=== PATIENT | female | born 1950 | race Caucasian/White ===

== ENCOUNTER 2016-10-21 12:22 | Inpatient (IN) | payer OTHER ==
[~2016-10-21] VITALS: Ht 160 cm; Wt 81.6 kg
[2016-10-21 12:22] VITALS: BP_SYST 113
--- NOTE | 2016-10-21 12:35 | NUR ---
Patient to ER bed 1 to gown for evaluation by Elaine. Side rails up. Report given to me.
[2016-10-21] MEDS ORDERED: NACL 0.9% 1,000 ML IV ONE (12:44)
[2016-10-21] MEDS ORDERED: MECLIZINE HCL 25 MG TABLET (ANITVERT) PO ONE ×2 (12:45→13:45)
[2016-10-21] MEDS ORDERED: ONDANSETRON HCL 4 MG/2 ML VIAL IVP ONE ×2 (12:45→13:45)
--- NOTE | 2016-10-21 12:45 | NUR ---
Patient BIB co workers for sudden onset of dizziness when standing up at work.pt is feeling nauseous,denies vomiting, states she is feeling better when she is laying on her side. pt denies pain. pt denies hx of this occurance. will continue to monitor
--- NOTE | 2016-10-21 12:48 | NUR ---
Dr Alston at bedside to evaluate patient
[2016-10-21 13:05] LABS: BASOPHILS % (AUTO) 0.4 % (0.0-2.0); EOSINOPHILS # (AUTO) 0.1 K/uL (0.0-0.4); EOSINOPHILS % (AUTO) 0.8 % (0.0-4.0); HEMATOCRIT 39.3 % (36-48); HEMOGLOBIN 13.2 g/dL (12.0-16.0); LYMPHOCYTES # (AUTO) 2.8 K/uL (1.0-5.5); LYMPHOCYTES % (AUTO) 30.5 % (20.5-51.5); MEAN CORPUSCULAR HEMOGLOBIN 31 pg (27-31); MEAN CORPUSCULAR HGB CONC 34 % (32-36); MEAN CORPUSCULAR VOLUME 93 fL (79.0-98.0); MONOCYTES # (AUTO) 0.8 K/uL (0.0-1.0); MONOCYTES % (AUTO) 8.1 % (1.7-9.3); NEUTROPHILS # (AUTO) 5.6 K/uL (1.8-7.7); NEUTROPHILS % (AUTO) 60.2 % (40.0-70.0); PLATELET COUNT (AUTO) 348 K/uL (130-430); RED BLOOD CELL COUNT(AUTO) 4.22 MIL/uL (4.2-6.2); RED CELL DISTRIBUTION WIDTH 11.9 % (9.0-15.0); WHITE BLOOD COUNT (AUTO) 9.3 K/uL (4.8-10.8)
--- NOTE | 2016-10-21 13:08 | NUR ---
medicated pt per MD order
[2016-10-21 13:13] LABS: CALCIUM 8.9 mg/dL (8.4-11.0); CREATININE 0.78 mg/dL (0.55-1.30); POTASSIUM 3.1 mmol/L (3.5-5.1)
[2016-10-21 13:18] LABS: ALBUMIN 3.9 g/dL (3.4-4.8); TOTAL BILIRUBIN 0.6 mg/dL (0.0-1.0)
--- NOTE | 2016-10-21 13:22 | NUR ---
PT TO RADIOLOGY VIA [facility]
--- NOTE | 2016-10-21 13:37 | NUR ---
PT BACK FROM RADIOLOGY, PT STILL FEELING DIZZY AND NAUSEA. DR HURTADO RE EVALUATING PT
--- NOTE | 2016-10-21 13:49 | NUR ---
dr tam speaking to pt regarding results and POC
[2016-10-21] MEDS ORDERED: POTASSIUM CHLORIDE 20 MEQ TAB.PRT.SR PO ONE (14:00)
--- NOTE | 2016-10-21 14:08 | NUR ---
Telemetry strip printed, interpreted as SINUS RHYTHM at 68 bpm, and placed on the chart.
--- NOTE | 2016-10-21 14:44 | NUR ---
Patient will be admitted to care of Dr Covarrubias. Admitted to med-surg unit. Will go to room 130-A. Belongings list completed. Summary report printed. Report will be given at bedside.
--- NOTE | 2016-10-21 14:45 | NUR ---
Call from radiology, MRI has gone home for the day-will need to change MRI order for tomorrow. Order changed.
--- NOTE | 2016-10-21 14:48 | NUR ---
ADMISSION NOTE Received patient from ER via gurney. Patient admitted with diagnosis of Vertigo. Patient is awake, alert, oriented X 4. Patient oriented to hospital room, call light, toileting, pain management and safety-teach back done. Patient informed that Macarena will be nurse and that their room number is 130A. Personal belongings checked and Belongings List documented. Call light within reach.
[2016-10-21 14:50] VITALS: BP_SYST 150
--- NOTE | 2016-10-21 14:50 | NUR ---
Report given to Erickson RN via telephone, update given-questions answered
--- NOTE | 2016-10-21 15:00 | NUR ---
assessment notes rec patienr from er with a dx vertigo . asleep but arousbale to stimuli, somewhat restless and dont know which position to go. felt more comforatble she said on her left side. accompanied by her daughter at bedside. bed in low position and side rails up and locked. call light within reached and pt instructed how to call nurse for assistance. will continue to monitor patient.
--- NOTE | 2016-10-21 16:00 | NUR ---
md seen by dr guerrero and waiting to put in orders. sleeps at intervals.
--- NOTE | 2016-10-21 17:33 | NUR ---
rounds assited to the bed side commode and voided large amount of richard output. ice chips given and stated it helps her nausea. iv was accidentally pulled out on the l ac and restarted on the r hand #22. patent and infusing well . no infiltration noted. will continue to monitor patient.
--- NOTE | 2016-10-21 19:00 | NUR ---
closing notes dr guerrero was called and reminded him re admission orders and stated re [facility]
[2016-10-21] MEDS ORDERED: ONDANSETRON HCL 4 MG/2 ML VIAL IVP PRN (19:45)
--- NOTE | 2016-10-21 19:59 | NUR ---
Rounds Received patient lying in bed resting, denies of any pain, no nausea or vomiting, no acute distress noted. IV site checked intact and patent, IV fluid infusing well. Instructed patient to call nurse when getting out of bed, call light within reach. Family at the bedside.
[2016-10-21 20:00] VITALS: BP_SYST 117
[2016-10-21] MEDS: MECLIZINE HCL 25 MG TABLET (ANITVERT) PO SCH ×2 (21:00→22:51)
--- NOTE | 2016-10-21 22:00 | NUR ---
Rounds Patient resting call light within reach.
[2016-10-22 00:01] VITALS: BP_SYST 133
--- NOTE | 2016-10-22 00:33 | NUR ---
Rounds Patient resting quietly, call light within reach.
--- NOTE | 2016-10-22 02:57 | NUR ---
Rounds Patient resting quietly, call light within reach.
[2016-10-22 03:44] VITALS: BP_SYST 128
--- NOTE | 2016-10-22 05:00 | NUR ---
Rounds Patient resting quietly, call light within reach.
[2016-10-22] MEDS ORDERED: ERGO500043 PO (05:07)
--- NOTE | 2016-10-22 07:55 | NUR ---
Closing notes Patient slept most of the night, no other changes noted on patient current condition. Endorsed to on coming nurse to inform Dr Covarrubias regarding diet order.
--- NOTE | 2016-10-22 08:12 | NUR ---
OPENING NOTE PATIENT RESTING COMFORTABLY. NO COMPLAINTS OF PAIN AT THIS TIME. PATIENT HAS SOME DIZZINESS PRESENT. PATIENTS BED IN LOWEST POSITION, CALL LIGHT WITHIN REACH, AND SIDE RAILS ARE UP FOR SAFETY. PATIENT IS ON PRODUCT DEVELOPMENT TECHNICIAN, PATIENTS IV SALINE LOCKED PER MD ORDERS. PATIENT TO RECEIVE CAROTID US AND MRI. WILL CONTINUE TO MONITOR AND FOLLOW UP.
[2016-10-22] MEDS: MECLIZINE HCL 25 MG TABLET (ANITVERT) PO SCH ×2 (09:10→14:43)
[2016-10-22 09:12] VITALS: BP_SYST 126
--- NOTE | 2016-10-22 10:05 | NUR ---
Nutrition Update Neymar Scale 18 noted. Pt admitted for intractable vomiting, vertigo. Diet: regular BMI: 31.9 kg/m2 RD to follow per nutrition care standards.
--- NOTE | 2016-10-22 10:15 | NUR ---
1000 NOTE PATIENT RESTING COMFORTABLY. NO COMPLAINTS OF PAIN AT THIS TIME. PATIENT HAS SOME DIZZINESS PRESENT. PATIENTS BED IN LOWEST POSITION, CALL LIGHT WITHIN REACH, AND SIDE RAILS ARE UP FOR SAFETY. PATIENT IS ON EDGE BANDING OFF BEARER, ORDERS TO DISCONTINUE PER . PATIENTS IV SALINE LOCKED PER MD ORDERS. PATIENTS DIET ORDERS REGULAR DIET. PATIENT PROVIDED SNACKS AND TURKEY SANDWICH FOR COMFORT UNTIL LUNCH ARRIVES. PATIENT RECEIVED CAROTID US AND MRI, WILL CALL MD WHEN RESULTS ARE BACK. WILL CONTINUE TO MONITOR AND FOLLOW UP.
--- NOTE | 2016-10-22 10:36 | NUR ---
NOTE PAGED DR. MORRISSEY PER LAB REQUEST FOR AUTHORIZATION FOR LAB TEST PCR BCR/ABL, GURU-2, M. SPOKE WITH DR. MORRISSEY, STATES, "NOT AUTHORIZED." WILL CALL YAS IN LAB.
[2016-10-22] MEDS ORDERED: ASPIRIN 325 MG TABLET (ECOTRIN) PO ONE (11:00)
[2016-10-22 12:00] VITALS: BP_SYST 128
--- NOTE | 2016-10-22 13:23 | NUR ---
1200 NOTE PATIENT RESTING COMFORTABLY. NO COMPLAINTS OF PAIN AT THIS TIME. PATIENT HAS SOME DIZZINESS PRESENT. PATIENTS BED IN LOWEST POSITION, CALL LIGHT WITHIN REACH, AND SIDE RAILS ARE UP FOR SAFETY. PATIENTS IV SALINE LOCKED PER MD ORDERS. PATIENTS DIET ORDERS REGULAR DIET. PATIENTS MOTHER IS AT BEDSIDE FOR COMFORT. WILL CONTINUE TO MONITOR PATIENT FOR CHANGES IN STATUS. PATIENT HAS DISCHARGE ORDERS FOR TODAY, DISCHARGE HOME AND FOLLOW UP IN ONE WEEK. PATIENT DOES NOT WANT TO LEAVE BECAUSE DISCHARGE WAS DISCUSSED WITH DR. MORRISSEY. PATIENT STATES HE TOLD HER "WE WILL KEEP YOU ONE MORE NIGHT, DISCHARGE FOR TOMORROW."
--- NOTE | 2016-10-22 14:52 | NUR ---
1400 NOTE PATIENT RESTING COMFORTABLY. NO COMPLAINTS OF PAIN AT THIS TIME. PATIENT HAS SOME DIZZINESS PRESENT. PATIENTS BED IN LOWEST POSITION, CALL LIGHT WITHIN REACH, AND SIDE RAILS ARE UP FOR SAFETY. PATIENTS IV SALINE LOCKED PER MD ORDERS. PATIENTS DIET ORDERS REGULAR DIET. WILL CONTINUE TO MONITOR PATIENT FOR CHANGES IN STATUS.
[2016-10-22 17:18] VITALS: BP_SYST 128
[2016-10-22 17:46] VITALS: BP_SYST 128
--- NOTE | 2016-10-22 17:55 | NUR ---
NOTE: SPOKE WITH DR. MORRISSEY REGARDING PATIENT QUESTIONING DISCHARGE ORDER. HE STATED, OKAY TO DISCHARGE, PROVIDED MRI RESULTS. REASSURE PATIENT THAT IT IS OKAY TO FOLLOW UP WITH PRIMARY CARE PROVIDER. EAR PAIN CAN BE FOLLOWED UP WITH ON AN OUTPATIENT BASIS.
--- NOTE | 2016-10-22 18:20 | NUR ---
D/C Patient Patient given medication reconciliation form and D/C instructions. Exit Care provided. Patient verbalized understanding. MD discussed with patient the results and treatment provided. Records for radiology tests given to patient per MD request. Ambulatory with steady gait for discharge to home. Patient in stable condition, ID band removed. IV catheter removed, intact and dressing applied, no active bleeding. Rx of given. Patient to follow up with PCP regarding ear pain. All belongings sent with patient.
[2016-10-23] MEDS ORDERED: ASPIRIN 325 MG TABLET (ECOTRIN) PO SCH (09:00)
--- NOTE | 2016-10-23 15:33 | NUR ---
Discharge Follow Up Phone Call [facility] phoned patient, . Patient stated she was doing okay but her inner ear still did not "feel right". Patient has made her follow up appointment with Dr Stevenson on 10/28/16 11am. Patient requested her information be faxed to Dr Stevenson. [facility] faxed information to Dr Stevenson p [phone] f [phone]. Patient had no other questions or concerns.
== END 2016-10-22 18:20 | disposition home or self-care (01) | DRG 66 ==
LOC: SED 12:22 → STU 14:10 → SMU 10-22 16:09
PROVIDERS: ADMIT Internal Medicine Hospice and Palliative Medicine; ATTEND Internal Medicine Hospice and Palliative Medicine
DX: I63.9 Cerebral infarction, unspecified (principal); E78.5 Hyperlipidemia, unspecified; R42 Dizziness and giddiness; F17.200 Nicotine dependence, unspecified, uncomplicated; E87.6 Hypokalemia
CPT/HCPCS: 36415; 70450-TC; 70551; 80053; 85025; 93306; 93880; 96361; 96374; 99285; J2405; J7030; J8597